=== PATIENT | male | born 1985 | race Two or more races ===

== ENCOUNTER 2019-10-19 11:45 | Emergency (ER) | payer OTHER ==
[~2019-10-19] VITALS: Ht 167.6 cm; Wt 99.8 kg
[2019-10-19] MEDS ORDERED: FLUOXETINE HCL20 MG PO (12:20)
[2019-10-19] MEDS ORDERED: KETO10TA2 PO (13:51)
== END 2019-10-19 13:51 | disposition home or self-care (01) ==
LOC: ER 11:45
DX: R30.0 Dysuria (principal); Z03.818 Encounter for observation for suspected exposure to other biological agents ruled out

== ENCOUNTER 2023-10-11 10:06 | Emergency (ER) | payer OTHER ==
[~2023-10-11] VITALS: Ht 170.2 cm; Wt 97.5 kg
[~2023-10-11 10:06] MED LIST: FLUOXETINE HCL20 MG PO; KETO10TA2 PO
[2023-10-11] MEDS ORDERED: RINGERS SOLUTION,LACTATED 1,000 ML IV STA (10:42)
[2023-10-11] MEDS ORDERED: KETOROLAC TROMETHAMINE 60 MG VIAL IM STA (10:43)
[2023-10-11] MEDS ORDERED: KETOROLAC TROMETHAMINE 30 MG VIAL ONE (11:07)
[2023-10-11] MEDS ORDERED: KETOROLAC TROMETHAMINE 30 MG VIAL IV ONE (11:30)
[2023-10-11 11:46] LABS: HEMATOCRIT 39.7 % (39.0-48.0); HEMOGLOBIN 13.3 g/dL (13-16.00); MEAN CELL VOLUME 78.8 fL (80.0-100.00); MEAN CORPUSCULAR HEMOGLOBIN 26.4 pg (27.00-32.0); MEAN CORPUSCULAR HGB CONC 33.5 g/dl (32.0-36.0); PLATELET COUNT 236 K/uL (150-450); RED BLOOD COUNT 5.04 M/uL (4.00-6.00); RED CELL DISTRIBUTION WIDTH 13.9 % (11.5-14.5)
[2023-10-11 11:53] LABS: URINE APPEARANCE Clear; URINE BILIRRUBIN Negative (NEGATIVE); URINE BLOOD Negative; URINE COLOR Yellow; URINE GLUCOSE Negative (NEGATIVE); URINE LEUKOCYTE Negative; URINE NITRATE Negative; URINE PROTEIN Trace (NEGATIVE)
[2023-10-11 11:58] LABS: URINE EPITHELIAL CELLS 2.1 uL (0.0-38.8); URINE RBC 12.2 uL (0.0-20.8); URINE WBC 3.2 uL (0.0-23.2)
[2023-10-11 12:03] LABS: URINE BACTERIA 2.5 uL (0.0-1933)
[2023-10-11 12:13] LABS: CALCIUM 8.8 mg/dL (8.5-10.1); CREATININE SERUM 0.79 mg/dL (0.70-1.30); GFR 108.63; POTASSIUM 4.57 mEq/L (3.5-5.1)
== END 2023-10-11 15:20 | disposition home or self-care (01) ==
LOC: ER 10:06
PROVIDERS: General Practice
DX: R10.32 Left lower quadrant pain (principal)